=== PATIENT | male | born 1970 | race Two or more races ===

== ENCOUNTER 2016-07-22 08:04 | Day surgery (SDC) | payer OTHER ==
[2016-07-22 08:09] VITALS: BMI 25.2
--- NOTE | 2016-07-22 08:38 | PDOC ---
History of Present Illness - General History Source: Patient Exam Limitations: No Limitations - History of Present Illness Initial Comments: 07/22/16 09:23 The patient is a 46 year old male, with a significant past medical history of HTN, DM, ESRD (on dialysis Wednesday, , Wednesday) , who was sent to the emergency department for a pre-op evaluation for a clotted AV fistula. The patient reports having a full complete dialysis yesterday, but reports it was slow in function. He denies any recent fevers, chills, headache or dizziness. He denies any recent vomit, diarrhea or constipation. Allergies: NKA Past surgical history: None reported. Social History: Nonsmoker. Denies EtOH use and drug use. Primary Care Physician: <Marcelo Duncan - Last Filed: 07/22/16 10:51> <Sanjiv Morales - Last Filed: 07/23/16 08:33> - General Chief Complaint: Dialysis Shunt Problem Stated Complaint: PRE-OP,sent by Dr Reese clotted AV fistula Time Seen by Provider: 07/22/16 08:28 Past History <Marcelo Duncan - Last Filed: 07/22/16 10:51> - Past Medical History Diabetes: Yes (iddm) Dialysis: Yes () HTN: Yes Hypercholesterolemia: Yes - Psycho/Social/Smoking Cessation Hx Anxiety: No Suicidal Ideation: No Smoking History: Never smoked Have you smoked in the past 12 months: No Information on smoking cessation initiated: No Hx Alcohol Use: No Drug/Substance Use Hx: No Substance Use Type: None Hx Substance Use Treatment: No <Sanjiv Morales - Last Filed: 07/23/16 08:33> - Past Medical History Allergies/Adverse Reactions: Allergies Allergy/AdvReac Type Severity Reaction Status Date / Time No Known Allergies Allergy Verified 07/22/16 08:09 Home Medications: Ambulatory Orders Amlodipine Besylate 10 mg PO DAILY 10/09/15 Aspirin [Aspirin EC] 81 mg PO DAILY 10/09/15 Enalapril Maleate [Vasotec] 20 mg PO DAILY 10/09/15 Hydralazine HCl [Apresoline -] 50 mg PO TID 10/09/15 Metoprolol Tartrate 50 mg PO BID 10/09/15 Multivitamin with Iron [Daily Seven with Iron] 1 each PO DAILY 10/09/15 Pravastatin Sodium 20 mg PO DAILY 10/09/15 Insulin Glargine,Hum.rec.anlog [Lantus Solostar PEN (NF)] 0 units SQ ASDIR 03/04 Omeprazole 20 mg PO DAILY 03/04/16 Review of Systems - Review of Systems Able to Perform ROS?: Yes Comments:: 07/22/16 09:24 CONSTITUTIONAL: No reported: Fever, Chills, Diaphoresis, Generalized Weakness, Malaise, Loss of Appetite HEENT: No reported: Rhinorrhea, Nasal Congestion, Throat Pain, Throat Swelling, Difficulty Swallowing, Mouth Swelling, Ear Pain, Eye Pain, Visual Changes CARDIOVASCULAR: No reported: Chest Pain, Syncope, Palpitations, Irregular Heart Rate, Lightheadedness, Peripheral Edema RESPIRATORY: No reported: Cough, Shortness of Breath, SOB with Exertion, Orthopnea, Wheezing , Stridor, Hemoptysis GASTROINTESTINAL: No reported: Abdominal Distension, Nausea, Vomiting, Diarrhea, Constipation, Melena, Hematochezia GENITOURINARY: No reported: Dysuria, Frequency, Urgency, Hesitancy, Flank Pain, Genital Pain MUSCULOSKELETAL: No reported: Myalgia, Arthralgia, Joint Swelling, Back pain, Neck Pain SKIN: No reported: Rash, Itching, Pallor HEMATOLOGIC/IMMUNOLOGIC: +clotted AV fistula. No reported: Easy Bleeding, Easy Bruising, Lymphadenopathy , Frequent infections ENDOCRINE: No reported: Unexplained Weight Gain, Unexplained Weight Loss, Heat Intolerance , Cold Intolerance NEUROLOGIC: No reported: Headache, Focal Weakness, Paresthesias, Vertigo, Lightheadedness, Unsteady Gait, Seizure, Mental Status Changes, Incontinence PSYCHIATRIC: No reported: Anxiety, Depression <Marcelo Duncan - Last Filed: 07/22/16 10:51> *Physical Exam - Vital Signs Last Vital Signs Temp Pulse Resp BP Pulse Ox 98.1 F 92 H 18 128/86 98 07/22/16 08:07 07/22/16 08:07 07/22/16 08:07 07/22/16 08:07 07/22/16 09:16 - Physical Exam Comments: 07/22/16 09:24 GENERAL: The patient is awake, alert, and fully oriented, Nontoxic - in no acute distress. HEAD: Normocephalic, atraumatic. EYES: extraocular movements intact, sclera anicteric, conjunctiva clear. ENT: Normal voice, Moist mucous membranes. NECK: Normal range of motion, supple LUNGS: Breath sounds equal, clear to auscultation bilaterally. No wheezes, no rhonchi, no rales. HEART: Regular rate and rhythm, without murmur, rub or gallop. ABDOMEN: Soft, nontender, normoactive bowel sounds. No guarding, no rebound.No CVA tenderness EXTREMITIES: Left forearm fistula in place with a good thrill. Normal range of motion, no edema. No clubbing or cyanosis. No cords, erythema, or tenderness. NEUROLOGICAL: No facial asymmetry, Normal speech. moving all 4 extremities spontaneously and symmetrically PSYCH: Normal mood, normal affect. SKIN: Warm, Dry, normal turgor. <Marcelo Duncan - Last Filed: 07/22/16 10:51> - Vital Signs Last Vital Signs Temp Pulse Resp BP Pulse Ox 98.1 F 92 H 18 128/86 100 07/22/16 08:07 07/22/16 08:07 07/22/16 08:07 07/22/16 08:07 07/22/16 08:07 <Sanjiv Morales - Last Filed: 07/23/16 08:33> Heart Score/ECG Review - ECG Impressions Comment:: 07/22/16 09:33 Twelve-lead EKG was performed and reviewed by me. There is normal sinus rhythm with a normal rate. rate of 88 The axis is normal. The intervals are normal. There is normal R wave progression There are no ST or T wave abnormalities. no signs of interval widening or peaked T waves Impression: Normal twelve-lead EKG <Sanjiv Morales - Last Filed: 07/23/16 08:33> ED Treatment Course - LABORATORY CBC & Chemistry Diagram: 07/22/16 09:12 07/22/16 09:12 - RADIOLOGY Radiograph Interpretation: 07/22/16 09:20 CHEST X-RAY impressions reported by : Unremarkable examination. <Marcelo Duncan - Last Filed: 07/22/16 10:51> - LABORATORY CBC & Chemistry Diagram: 07/22/16 09:12 07/22/16 09:12 <Sanjiv Morales - Last Filed: 07/23/16 08:33> Medical Decision Making - Medical Decision Making 07/22/16 10:49 Call made to , awaiting call back. 07/22/16 10:51 Call back from , case discussed. <Marcelo Duncan - Last Filed: 07/22/16 10:51> - Medical Decision Making 07/22/16 09:55 46y M hx of ESRD (sp dialysis yesterday) presents with malfunctioning AV shunt and was told by dr. reese to come to ER for revision last meal 10pm. will obtian pre op labs will discuss with dr. reese. likely admit to OR A portion of this note was documented by scribe services under my direction. I have reviewed the details of the note, within reason, and agree with the documentation with the following case summary and management plan written by me 07/22/16 10:47 labs reviewed noted for elevated cr, as expected k slightly elevated at 5.[address] reese 07/22/16 11:[address] reese plan for or around 1pm wlll admit to his service Case discussed in detail with admitting physician including history, physical exam and ancillary studies. Admitting physician has assumed care for the patient, will follow all pending diagnostics and will complete the evaluation and treatment. <Sanjiv Morales - Last Filed: 07/23/16 08:33> *DC/Admit/Observation/Transfer - Attestations Scribe Attestion: 07/22/16 09:24 Documentation prepared by Marcelo Duncan, acting as medical instrument technician for Sanjiv Morales MD. <Marcelo Duncan - Last Filed: 07/22/16 10:51> - Discharge Dispostion Admit: Yes <Sanjiv Morales - Last Filed: 07/23/16 08:33> Diagnosis at time of Disposition: Complication of AV dialysis fistula Qualifiers: Encounter type: initial encounter Qualified Code(s): T82.9XXA - Unspecified complication of cardiac and vascular prosthetic device, implant and graft, initial encounter - Discharge Dispostion Disposition: HOME Condition at time of disposition: Good
[2016-07-22 09:49] LABS: EOSINOPHIL 2.3 % (0-4.5); MCH 32.5 pg (25.7-33.7); MCHC 33.3 g/dl (32.0-35.9); MEAN CELL VOLUME 97.7 fl (80-96); MEAN PLT VOLUME 8.2 fl (7.5-11.1); NEUTROPHILS 65.5 % (42.8-82.8); PLATELET COUNT 228 K/MM3 (134-434); RDW 13.3 % (11.9-15.9); WHITE BLOOD COUNT 7.3 K/mm3 (4.0-10.0)
[2016-07-22 10:16] LABS: ALBUMIN 3.8 g/dl (3.4-5.0); CALCIUM 8.9 mg/dL (8.5-10.1)
[2016-07-22 10:21] LABS: INR 0.91 (0.82-1.09)
[2016-07-22 10:24] LABS: BILIRUBIN,TOTAL 0.4 mg/dL (0.2-1.0); COCKROFT - GAULT 8.78; CREATININE 9.2 mg/dL (0.7-1.3); TOT PROT 8.1 g/dl (6.4-8.2)
[2016-07-22] MEDS ORDERED: HEPARIN NA (PORCINE) 5,000 UNITS/ML 1ML VIAL ONE ×2 (12:35→13:29)
[2016-07-22] MEDS ORDERED: LIDOCAINE HCL 1%, 10 MG/ML (20ML VIAL) ONE (12:35)
[2016-07-22] MEDS ORDERED: MIDAZOLAM HCL 2 MG/2 ML SINGLE DOSE VIAL ONE (13:09)
[2016-07-22] MEDS ORDERED: ceFAZolin SODIUM 1 GM VIAL ONE (13:16)
[2016-07-22] MEDS ORDERED: ceFAZolin SODIUM 1 GM VIAL IVPB ONE (13:22)
--- NOTE | 2016-07-22 14:11 | EKG ---
Test Reason : Blood Pressure : / mmHG Vent. Rate : 088 BPM Atrial Rate : 088 BPM P-R Int : 160 ms QRS Dur : 086 ms QT Int : 354 ms P-R-T Axes : 073 067 072 degrees QTc Int : 428 ms NORMAL SINUS RHYTHM NORMAL ECG WHEN COMPARED WITH ECG OF 04-MAR-2016 07:58, NO SIGNIFICANT CHANGE WAS FOUND Confirmed by CARLOS MANUEL LANIER MD ([id number]) on 07/22/2016 2:11:21 PM Referred By: Confirmed By:CARLOS MANUEL LANIER MD
--- NOTE | 2016-07-22 14:28 | HP ---
Admitting History and Physical - Admission Chief Complaint: low flow left avf - Past Medical History Cardiovascular: Yes: HTN, Hyperlipdemia Renal/: Yes: Renal Failure Musculoskeletal: Yes: Chronic low back pain - Past Surgical History Past Surgical History: Yes: AV Fistula/Graft - Smoking History Smoking history: Never smoked Have you smoked in the past 12 months: No - Alcohol/Substance Use Hx Alcohol Use: No Home Medications - Allergies Allergies/Adverse Reactions: Allergies Allergy/AdvReac Type Severity Reaction Status Date / Time No Known Allergies Allergy Verified 07/22/16 08:09 - Home Medications Home Medications: Ambulatory Orders Amlodipine Besylate 10 mg PO DAILY 10/09/15 Aspirin [Aspirin EC] 81 mg PO DAILY 10/09/15 Enalapril Maleate [Vasotec] 20 mg PO DAILY 10/09/15 Hydralazine HCl [Apresoline -] 50 mg PO TID 10/09/15 Metoprolol Tartrate 50 mg PO BID 10/09/15 Multivitamin with Iron [Daily Seven with Iron] 1 each PO DAILY 10/09/15 Pravastatin Sodium 20 mg PO DAILY 10/09/15 Insulin Glargine,Hum.rec.anlog [Lantus Solostar PEN (NF)] 0 units SQ ASDIR 03/04 Omeprazole 20 mg PO DAILY 03/04/16 Physical Examination Vital Signs: Vital Signs Temperature 98.9 F 07/22/16 13:53 Pulse Rate 80 07/22/16 14:05 Respiratory Rate 15 07/22/16 14:05 Blood Pressure 122/70 07/22/16 14:05 O2 Sat by Pulse Oximetry (%) 98 07/22/16 14:05 Constitutional: Yes: Well Nourished Eyes: Yes: WNL HENT: Yes: WNL Neck: Yes: WNL Cardiovascular: Yes: WNL Respiratory: Yes: WNL Gastrointestinal: Yes: WNL Extremities: Yes: WNL Labs: CBC, BMP 07/22/16 09:12 07/22/16 09:12 Assessment/Plan Low flow left avf 1. for venogram today
--- NOTE | 2016-07-22 14:28 | OP ---
Operative Note - Note: Operative Date: 07/22/16 Pre-Operative Diagnosis: Low flow left avf Operation: venogram,venoplaty left avf Post-Operative Diagnosis: Same as Pre-op Surgeon: Abiodun Flanagan Anesthesia: Fractional Estimated Blood Loss (mls): 10 Operative Report Dictated: Yes
[2016-07-22 14:46] VITALS: TEMP 98.1
[2016-07-22] MEDS ORDERED: ONDANSETRON 4 MG/2 ML VIAL IVPUSH PRN (14:59)
[2016-07-22] MEDS ORDERED: ACETAMINOPHEN 325 MG TABLET (FP) PO PRN (14:59)
[2016-07-22 15:07] VITALS: PULSE 84
[2016-07-22 16:32] VITALS: BP 145/80
== END 2016-07-22 16:20 | disposition home or self-care (01) ==
LOC: JER 08:04 → JASUSAT 10:53
PROVIDERS: ATTEND Surgery Vascular Surgery
PROC: 057Y3ZZ Dilation of Upper Vein, Percutaneous Approach (ICD-10-PCS; principal; 2016-07-22 11:00)
DX: I12.0 Hypertensive chronic kidney disease with stage 5 chronic kidney disease or end stage renal disease (principal); E11.22 Type 2 diabetes mellitus with diabetic chronic kidney disease; N18.6 End stage renal disease; Z99.2 Dependence on renal dialysis
CPT/HCPCS: 36415; 71010-TC; 76000-TC; 80053; 85025; 85610; 86850; 86900; 86901; 93005; 93010; 94760; 99284-25; J1644

== ENCOUNTER 2017-01-22 06:52 | Day surgery (SDC) | payer OTHER ==
[2017-01-22 07:13] VITALS: BMI 24.7
--- NOTE | 2017-01-22 07:45 | PDOC ---
Attending Attestation - Medical Decision Making 01/22/17 07:49 First call placed to Dr. Flanagan's answering service at 07:49. Awaiting call back. Second call placed to Dr. Flanagan at 08:17. Awaiting call back. Documentation prepared by Natasha Trammell, acting as medical technologist for Iqra Siddiqui MD. <Natasha Trammell - Last Filed: 01/22/17 08:16> - Resident Resident Name: Senait Castorenal - ED Attending Attestation I have performed the following: I have examined & evaluated the patient, The case was reviewed & discussed with the resident, I agree w/resident's findings & plan, Exceptions are as noted - HPI HPI: 01/22/17 07:39 46yo M hx ESRD on HD, DM, HTN sent in by Dr. Flanagan for admission for fistula procedure. Pt reports his fistula has not been working well and that the machine kept beeping yesterday during HD. He reports that he had a full session of HD yesterday. Denies other symptoms of fevers, chills, cp, sob, abd pain, rashes, LE edema, dysuria, frequency, weakness/numbness, headache. - Physicial Exam PE: 01/22/17 07:53 GENERAL: Awake, alert, and fully oriented, in no acute distress HEAD: No signs of trauma EYES: PERRLA, EOMI, sclera anicteric, conjunctiva clear ENT: Auricles normal inspection, hearing grossly normal, nares patent, oropharynx clear without exudates. Moist mucosa NECK: Normal ROM, supple, no lymphadenopathy, JVD, or masses LUNGS: Breath sounds equal, clear to auscultation bilaterally. No wheezes, and no crackles HEART: Regular rate and rhythm, normal S1 and S2, no murmurs, rubs or gallops ABDOMEN: Soft, nontender, normoactive bowel sounds. No guarding, no rebound. No masses EXTREMITIES: Normal range of motion, no edema. No clubbing or cyanosis. No cords, erythema, or tenderness. L forearm fistual with palpable thrill. NEUROLOGICAL: Normal speech, cranial nerves intact, negative pronator drift, 5/ 5 strength in all 4 extremities, normal sensation to light touch in all 4 extremities, normal cerebellar exam, normal gait, normal reflexes and tone SKIN: Warm, Dry, normal turgor, no rashes or lesions noted. - Medical Decision Making 01/22/17 08:11 46yo M hx ESRD on HD p/w malfunctioning fistula per Dr. Flanagan. Vitals unremarkable. Palpable thrill on exam. Plan: -labs -ECG -CXR -call Dr. Flanagan 01/22/17 08:41 OR calling for the patient but we have not yet heard from Dr. Flanagan about the plan re admission vs satellite 01/22/17 08:52 Dr Flanagan requests satellite admission for the patient. Pt will be going up to OR shortly. <Iqra Siddiqui - Last Filed: 01/22/17 08:53> Discharge Disposition - Discharge Dispostion Last Admission D/C Date: 03/04/16 Admit: Yes - Transfer to Acute Care Facility Transfer comment: 01/22/17 08:52 I, Dr. Iqra Siddiqui MD, attest that this document has been prepared under my direction and personally reviewed by me in its entirety. I further attest, that it accurately reflects all work, treatment, procedures and medical decision -making performed by me. <Iqra Siddiqui - Last Filed: 01/22/17 08:53> - Diagnosis Complication of AV dialysis fistula - Discharge Dispostion Condition at time of disposition: Stable Heart Score/ECG Review #1 01/22/17 08:41 Twelve-lead EKG was performed and reviewed by me. Normal sinus rhythm, rate 94, normal axis and intervals. No ST elevations or T-wave inversions. Some T-wave peaking in V2 through V4 however unchanged compared to EKG from 07/22/2016 <Iqra Siddiqui - Last Filed: 01/22/17 08:53>
--- NOTE | 2017-01-22 07:47 | PDOC ---
History of Present Illness - General Chief Complaint: Dialysis Shunt Problem Stated Complaint: admission pre op PCP: SENT Time Seen by Provider: 01/22/17 07:33 History Source: Patient Exam Limitations: No Limitations - History of Present Illness Initial Comments: 01/22/17 07:44 46 y.o. M with pmh of HTN, DM, and ESRD on dialysis sent to the ED by Dr. Flanagan for fistula surgery. Patient states he saw Dr. Flanagan on Wednesday and has been having issues at dialysis with his fistula. He underwent an ultrasound on Wednesday. Patient has no other complaints today. Patient denies fever, chills, n/v/d/c/, chest pain, sob, abd pain, dysuria, hematuria. All-NKDA SH-denies PCP- Dr. Chriss Parikh Past History - Past Medical History Allergies/Adverse Reactions: Allergies Allergy/AdvReac Type Severity Reaction Status Date / Time No Known Allergies Allergy Verified 01/22/17 07:07 Home Medications: Ambulatory Orders Amlodipine Besylate [Norvasc -] 10 mg PO DAILY 01/22/17 Aspirin Coated [Ecotrin -] 81 mg PO DAILY 01/22/17 Enalapril Maleate [Vasotec -] 10 mg PO DAILY 01/22/17 Hydralazine HCl [Apresoline -] 25 mg PO TID 01/22/17 Insulin Glargine,Hum.rec.anlog [Lantus Solostar PEN (NF)] 0 units SQ BID Metoprolol Tartrate [Lopressor -] 50 mg PO BID 01/22/17 Multivitamin with Iron [Daily Seven with Iron] 1 each PO DAILY 01/22/17 Omeprazole 20 mg PO DAILY 01/22/17 Pravastatin Sodium [Pravachol (Nf)] 20 mg PO DAILY 01/22/17 Diabetes: Yes (iddm) Dialysis: Yes (hd tues,thr,sat , lt arm fistula) HTN: Yes Hypercholesterolemia: Yes - Suicide/Smoking/Psychosocial Hx Smoking History: Never smoked Have you smoked in the past 12 months: No Information on smoking cessation initiated: No Hx Alcohol Use: No Drug/Substance Use Hx: No Substance Use Type: None Hx Substance Use Treatment: No Review of Systems - Review of Systems Comments:: 01/22/17 07:47 GENERAL/CONSTITUTIONAL: No fever or chills. No weakness. HEAD, EYES, EARS, NOSE AND THROAT: No change in vision. No ear pain or discharge. No sore throat. CARDIOVASCULAR: No chest pain or shortness of breath RESPIRATORY: No cough, wheezing, or hemoptysis. GASTROINTESTINAL: No nausea, vomiting, diarrhea or constipation. GENITOURINARY: No dysuria, frequency, or change in urination. MUSCULOSKELETAL: No joint or muscle swelling or pain. No neck or back pain. SKIN: No rash NEUROLOGIC: No headache, vertigo, loss of consciousness, or change in strength/ sensation. ENDOCRINE: No increased thirst. No abnormal weight change HEMATOLOGIC/LYMPHATIC: No anemia, easy bleeding, or history of blood clots. ALLERGIC/IMMUNOLOGIC: No hives or skin allergy. *Physical Exam - Vital Signs Last Vital Signs Temp Pulse Resp BP Pulse Ox 98.0 F 92 H 18 147/85 100 01/22/17 07:09 01/22/17 07:09 01/22/17 07:09 01/22/17 07:09 01/22/17 07:09 - Physical Exam Comments: 01/22/17 07:47 GENERAL: Awake, alert, and fully oriented, in no acute distress HEAD: No signs of trauma, normocephalic, atraumatic EYES: PERRLA, EOMI, sclera anicteric, conjunctiva clear ENT: Auricles normal inspection, hearing grossly normal, nares patent, oropharynx clear without exudates. Moist mucosa NECK: Normal ROM, supple, no lymphadenopathy, JVD, or masses LUNGS: No distress, speaks full sentences, clear to auscultation bilaterally HEART: Regular rate and rhythm, normal S1 and S2, no murmurs, rubs or gallops, peripheral pulses normal and equal bilaterally. ABDOMEN: Soft, nontender, normoactive bowel sounds. No guarding, no rebound. No masses EXTREMITIES: Normal inspection, Normal range of motion, no edema. No clubbing or cyanosis. Left arm fistula in place with palpable thrill. NEUROLOGICAL: Cranial nerves II through XII grossly intact. Normal speech, normal gait, no focal sensorimotor deficits SKIN: Warm, Dry, normal turgor, no rashes or lesions noted. ED Treatment Course - LABORATORY CBC & Chemistry Diagram: 01/22/17 08:12 01/22/17 08:12 - RADIOLOGY Radiology Studies Ordered: Category Date Time Status CHEST PA & LAT [RAD] Stat Radiology 01/22/17 07:42 Ordered Medical Decision Making - Medical Decision Making 01/22/17 07:57 46 y.o. M with pmh of HTN, DM, and ESRD on dialysis sent to the ED by Dr. Flanagan for fistula surgery. Plan: CBC, CMP, Coags, T&S, CXR, EKG 01/22/17 08:33 EKG- NSR, HR-94, QTc-417, Peaked T waves in V2-V4-- unchanged from prior EKG 01/22/17 09:02 Patient to OR per Dr. Flanagan. *DC/Admit/Observation/Transfer Diagnosis at time of Disposition: Complication of AV dialysis fistula - Discharge Dispostion Condition at time of disposition: Stable
[2017-01-22 08:28] LABS: BASOPHIL 1.2 % (0-2.0); EOSINOPHIL 2.1 % (0-4.5); MCH 33.2 pg (25.7-33.7); MCHC 33.5 g/dl (32.0-35.9); MEAN CELL VOLUME 99.1 fl (80-96); MEAN PLT VOLUME 6.9 fl (7.5-11.1); NEUTROPHILS 72.3 % (42.8-82.8); PLATELET COUNT 242 K/MM3 (134-434); RDW 14.1 % (11.9-15.9); WHITE BLOOD COUNT 7.4 K/mm3 (4.0-10.0)
[2017-01-22 08:55] LABS: ALBUMIN 3.5 g/dl (3.4-5.0); ANION GAP 9 (8-16); BILIRUBIN,TOTAL 0.4 mg/dL (0.2-1.0); CALCIUM 8.8 mg/dL (8.5-10.1); CO2 27 mmol/L (21-32); GLUCOSE,RANDOM 196 mg/dL (74-106); SGOT/AST 24 U/L (15-37); SGPT/ALT 48 U/L (12-78); TOT PROT 7.4 g/dl (6.4-8.2)
[2017-01-22 08:57] LABS: INR 0.89 (0.82-1.09); PROTHROMBIN TIME (PATIENT) 10.1 SEC (9.98-11.88)
[2017-01-22 09:00] LABS: ALK PHOS 247 U/L (45-117)
--- NOTE | 2017-01-22 09:03 | EKG ---
Test Reason : Blood Pressure : / mmHG Vent. Rate : 094 BPM Atrial Rate : 094 BPM P-R Int : 160 ms QRS Dur : 084 ms QT Int : 334 ms P-R-T Axes : 076 070 068 degrees QTc Int : 417 ms NORMAL SINUS RHYTHM NORMAL ECG WHEN COMPARED WITH ECG OF 22-JUL-2016 08:40, NO SIGNIFICANT CHANGE WAS FOUND Confirmed by AUBREE CORDOVA MD ([id number]) on 01/22/2017 9:02:50 AM Referred By: Confirmed By:AUBREE CORDOVA MD
[2017-01-22] MEDS ORDERED: MIDAZOLAM HCL 2 MG/2 ML SINGLE DOSE VIAL ONE (09:13)
[2017-01-22 09:14] LABS: CREATININE 8.7 mg/dL (0.7-1.3)
[2017-01-22] MEDS ORDERED: ceFAZolin SODIUM 1 GM VIAL ONE (09:28)
[2017-01-22] MEDS ORDERED: LIDOCAINE HCL 1%, 10 MG/ML (20ML VIAL) PNB ONE (09:38)
--- NOTE | 2017-01-22 09:50 | OP ---
Operative Note - Note: Operative Date: 01/22/17 Pre-Operative Diagnosis: stenosis left avf Operation: venogram, venoplasty left avf Post-Operative Diagnosis: Same as Pre-op Surgeon: Abiodun Flanagan Anesthesia: Fractional Estimated Blood Loss (mls): 10 Operative Report Dictated: Yes
[2017-01-22 10:57] VITALS: TEMP 97.8
[2017-01-22 12:35] VITALS: BP 150/80; PULSE 84
== END 2017-01-22 12:52 | disposition home or self-care (01) ==
LOC: JER 06:52 → JASUSAT 08:53 → JER 09:00 → JASUSAT 12:52
PROVIDERS: ATTEND Surgery Vascular Surgery
PROC: B51WYZZ Fluoroscopy of Dialysis Shunt/Fistula using Other Contrast (ICD-10-PCS; 2017-01-22)
PROC: 057Y3ZZ Dilation of Upper Vein, Percutaneous Approach (ICD-10-PCS; principal; 2017-01-22 09:00)
DX: T82.858A Stenosis of other vascular prosthetic devices, implants and grafts, initial encounter (principal); I12.0 Hypertensive chronic kidney disease with stage 5 chronic kidney disease or end stage renal disease; E11.22 Type 2 diabetes mellitus with diabetic chronic kidney disease; N18.6 End stage renal disease; Z99.2 Dependence on renal dialysis
CPT/HCPCS: 36415; 71020-TC; 76000-TC; 80053; 85025; 85610; 85730; 86850; 86900; 86901; 93005; 93010; 94760; 99285-25; J1644

== ENCOUNTER 2017-04-21 08:14 | Day surgery (SDC) | payer OTHER ==
[2017-04-21 08:18] VITALS: BMI 24.3
--- NOTE | 2017-04-21 11:10 | PDOC ---
History of Present Illness - History of Present Illness Initial Comments: 04/21/17 11:11 47 M with h/o ESRD on HD (), DM, HTN, presenting to ER for possible AVF malfunction. Pt states that he had an ultrasound done 2 weeks ago to evaluate his AVF. He received a call from Dr. Flanagan, his vascular surgeon, that he would require surgery and would need to come to the ER today. Pt denies any symptoms at this time. Had a full HD session yesterday without issue. <Jaiden Orlando - Last Filed: 04/21/17 12:11> <Natasha Trammell - Last Filed: 04/21/17 12:15> - General Chief Complaint: Dialysis Shunt Problem Stated Complaint: EVALUATION (PCP) Time Seen by Provider: 04/21/17 09:20 Past History - Past Medical History COPD: No Diabetes: Yes (iddm) Dialysis: Yes () HTN: Yes Hypercholesterolemia: Yes Seizures: No - Suicide/Smoking/Psychosocial Hx Smoking History: Current every day smoker Have you smoked in the past 12 months: No Information on smoking cessation initiated: No Hx Alcohol Use: No Drug/Substance Use Hx: No Substance Use Type: None Hx Substance Use Treatment: No <Jaiden Orlando - Last Filed: 04/21/17 12:11> <Natasha Trammell - Last Filed: 04/21/17 12:15> - Past Medical History Allergies/Adverse Reactions: Allergies Allergy/AdvReac Type Severity Reaction Status Date / Time No Known Allergies Allergy Verified 04/21/17 08:18 Home Medications: Ambulatory Orders Amlodipine Besylate [Norvasc -] 10 mg PO DAILY 01/22/17 Aspirin Coated [Ecotrin -] 81 mg PO DAILY 01/22/17 Enalapril Maleate [Vasotec -] 10 mg PO DAILY 01/22/17 Hydralazine HCl [Apresoline -] 25 mg PO TID 01/22/17 Insulin Glargine,Hum.rec.anlog [Lantus Solostar PEN (NF)] 0 units SQ BID Metoprolol Tartrate [Lopressor -] 50 mg PO BID 01/22/17 Multivitamin with Iron [Daily Seven with Iron] 1 each PO DAILY 01/22/17 Omeprazole 20 mg PO DAILY 01/22/17 Pravastatin Sodium [Pravachol (Nf)] 20 mg PO DAILY 01/22/17 Review of Systems - Review of Systems Comments:: 04/21/17 11:13 "GENERAL/CONSTITUTIONAL: No fever or chills. No weakness. HEAD, EYES, EARS, NOSE AND THROAT: No change in vision. No ear pain or discharge. No sore throat. CARDIOVASCULAR: No chest pain or shortness of breath. RESPIRATORY: No cough, wheezing, or hemoptysis. GASTROINTESTINAL: No nausea, vomiting, diarrhea or constipation. GENITOURINARY: No dysuria, frequency, or change in urination. MUSCULOSKELETAL: No joint or muscle swelling or pain. No neck or back pain. SKIN: No rash NEUROLOGIC: No headache, vertigo, loss of consciousness, or change in strength/ sensation. ENDOCRINE: No increased thirst. No abnormal weight change. HEMATOLOGIC/LYMPHATIC: No anemia, easy bleeding, or history of blood clots. ALLERGIC/IMMUNOLOGIC: No hives or skin allergy. " <Jaiden Orlando - Last Filed: 04/21/17 12:11> *Physical Exam - Vital Signs Last Vital Signs Temp Pulse Resp BP Pulse Ox 97.5 F L 85 20 140/89 100 04/21/17 08:15 04/21/17 08:15 04/21/17 08:15 04/21/17 08:15 04/21/17 08:15 - Physical Exam Comments: 04/21/17 11:13 "GENERAL: Awake, alert, and fully oriented, in no acute distress HEAD: No signs of trauma EYES: PERRLA, EOMI, sclera anicteric, conjunctiva clear ENT: Auricles normal inspection, hearing grossly normal, nares patent, oropharynx clear without exudates. Moist mucosa NECK: Nontender, no stepoffs, Normal ROM, supple, no lymphadenopathy, JVD, or masses LUNGS: Breath sounds equal, clear to auscultation bilaterally. No wheezes, and no crackles HEART: Regular rate and rhythm, normal S1 and S2, no murmurs, rubs or gallops ABDOMEN: Soft, nontender, normoactive bowel sounds. No guarding, no rebound. No masses EXTREMITIES: + L forearm AVF, compressible, with palpable thrill NEUROLOGICAL: Cranial nerves II through XII intact. 5/5 strength and sensation in all extremities, Normal speech, normal gait SKIN: Warm, Dry, normal turgor, no rashes or lesions noted. " <Jaiden Orlando - Last Filed: 04/21/17 12:11> - Vital Signs Last Vital Signs Temp Pulse Resp BP Pulse Ox 97.5 F L 85 20 140/89 100 04/21/17 08:15 04/21/17 08:15 04/21/17 08:15 04/21/17 08:15 04/21/17 08:15 <Natasha Trammell - Last Filed: 04/21/17 12:15> ED Treatment Course - LABORATORY CBC & Chemistry Diagram: 04/21/17 11:10 04/21/17 11:10 <Jaiden Orlando - Last Filed: 04/21/17 12:11> - LABORATORY CBC & Chemistry Diagram: 04/21/17 11:10 04/21/17 11:10 - ADDITIONAL ORDERS Additional order review: Laboratory Results 04/21/17 11:10 Sodium 134 L Potassium 4.5 Chloride 100 Carbon Dioxide 23 Anion Gap 11 BUN 38 H Creatinine 9.4 H* Creat Clearance w eGFR 6.01 Random Glucose 172 H Calcium 9.0 Total Bilirubin 0.4 AST 17 D ALT 40 Alkaline Phosphatase 211 H Total Protein 8.1 Albumin 3.9 04/21/17 11:10 RBC 4.03 D MCV 96.2 H MCHC 32.7 RDW 13.5 MPV 8.1 D Neutrophils % 71.8 Lymphocytes % 19.1 Monocytes % 6.6 Eosinophils % 1.6 Basophils % 0.9 <Natasha Trammell - Last Filed: 04/21/17 12:15> Medical Decision Making - Medical Decision Making 04/21/17 11:13 47 M with possible AVF malfunction. Review of US from 04/07 shows >50% stenosis of distal forearm outflow cephalic vein, 50-74% stenosis of proximal radial artery. - Pre-op labs - Consult Dr. Flanagan 04/21/17 12:[address] Flanagan, who would like to take pt to OR today as add-on. Pt NPO since last night at 11PM. Pre-op labs sent. Will admit to Dr. Flanagan as satellite. <Jaiden Orlando - Last Filed: 04/21/17 12:11> - Medical Decision Making 04/21/17 11:45 First call placed to Dr. Flanagan at 11:10. Awaiting call back. Case discussed with Dr. Flanagan at 12:11. <Natasha Trammell - Last Filed: 04/21/17 12:15> *DC/Admit/Observation/Transfer - Discharge Dispostion Admit: Yes - Attestations Physician Attestion: 04/21/17 12:12 I, Dr. Jaiden Orlando MD, attest that this document has been prepared under my direction and personally reviewed by me in its entirety. I further attest, that it accurately reflects all work, treatment, procedures and medical decision -making performed by me. <Jaiden Orlando - Last Filed: 04/21/17 12:11> - Attestations Scribe Attestion: 04/21/17 12:11 Documentation prepared by Natasha Trammell, acting as medical affairs director for Jaiden Orlando MD. <Natasha Trammell - Last Filed: 04/21/17 12:15> Diagnosis at time of Disposition: AV shunt malfunction
[2017-04-21 11:34] LABS: BASO % 0.9 % (0-2.0); EOS % 1.6 % (0-4.5); HEMATOCRIT 38.7 % (35.4-49); HEMOGLOBIN 12.6 GM/dL (11.7-16.9); LYMPH % 19.1 % (8-40); MCH 31.4 pg (25.7-33.7); MCHC 32.7 g/dl (32.0-35.9); MEAN CELL VOLUME 96.2 fl (80-96); MEAN PLT VOLUME 8.1 fl (7.5-11.1); MONO % 6.6 % (3.8-10.2); NEUT % 71.8 % (42.8-82.8); PLATELET COUNT 225 K/MM3 (134-434); RBC 4.03 M/mm3 (4.00-5.60); RDW 13.5 % (11.9-15.9); WHITE BLOOD COUNT 8.6 K/mm3 (4.0-10.0)
[2017-04-21 11:56] LABS: ALBUMIN 3.9 g/dl (3.4-5.0); ANION GAP 11 (8-16); BILIRUBIN,TOTAL 0.4 mg/dL (0.2-1.0); BLOOD UREA NITROGEN 38 mg/dL (7-18); CHLORIDE 100 mmol/L (98-107); CO2 23 mmol/L (21-32); GLUCOSE,RANDOM 172 mg/dL (74-106); POTASSIUM 4.5 mmol/L (3.5-5.1); SGOT/AST 17 U/L (15-37); SGPT/ALT 40 U/L (12-78); SODIUM 134 mmol/L (136-145); TOT PROT 8.1 g/dl (6.4-8.2)
[2017-04-21 12:02] LABS: ALK PHOS 211 U/L (45-117)
[2017-04-21 12:07] LABS: CREATININE 9.4 mg/dL (0.7-1.3)
[2017-04-21 12:47] LABS: INR 0.95 (0.82-1.09); PROTHROMBIN TIME (PATIENT) 10.7 SEC (9.98-11.88)
[2017-04-21 13:30] VITALS: TEMP 98
[2017-04-21] MEDS ORDERED: HEPARIN NA (PORCINE) 5,000 UNITS/ML 1ML VIAL ONE (14:42)
--- NOTE | 2017-04-21 15:07 | EKG ---
Test Reason : Blood Pressure : / mmHG Vent. Rate : 082 BPM Atrial Rate : 082 BPM P-R Int : 162 ms QRS Dur : 086 ms QT Int : 378 ms P-R-T Axes : 070 063 089 degrees QTc Int : 441 ms NORMAL SINUS RHYTHM NORMAL ECG WHEN COMPARED WITH ECG OF 22-JAN-2017 08:16, NO SIGNIFICANT CHANGE WAS FOUND Confirmed by CARLOS MANUEL LANIER MD ([id number]) on 04/21/2017 3:06:58 PM Referred By: Confirmed By:CARLOS MANUEL LANIER MD
[2017-04-21] MEDS ORDERED: MIDAZOLAM HCL 2 MG/2 ML SINGLE DOSE VIAL ONE ×3 (15:20)
[2017-04-21] MEDS ORDERED: PROPOFOL 20 ML ONE ×2 (15:21)
[2017-04-21] MEDS ORDERED: SODIUM CHLORIDE 0.9% P/F 10 ML VIAL IJ ONE (15:23)
[2017-04-21] MEDS ORDERED: LABETALOL HCL 5 MG/1 ML (100MG/20 ML VIAL) ONE (15:25)
[2017-04-21] MEDS ORDERED: LIDOCAINE HCL 1%, 10 MG/ML (20ML VIAL) PNB ONE (15:47)
--- NOTE | 2017-04-21 15:57 | OP ---
Operative Note - Note: Operative Date: 04/21/17 Pre-Operative Diagnosis: Stenosis left avf Operation: venogram, venoplasty left avf Post-Operative Diagnosis: Same as Pre-op Surgeon: Abiodun Flanagan Anesthesia: Fractional Estimated Blood Loss (mls): 5 Operative Report Dictated: Yes
--- NOTE | 2017-04-21 15:59 | HP ---
Admitting History and Physical - Admission Chief Complaint: stenosis left avf - Past Medical History Cardiovascular: Yes: HTN, Hyperlipdemia Renal/: Yes: Renal Failure Musculoskeletal: Yes: Chronic low back pain - Past Surgical History Past Surgical History: Yes: AV Fistula/Graft - Smoking History Smoking history: Never smoked Have you smoked in the past 12 months: No - Alcohol/Substance Use Hx Alcohol Use: No Home Medications - Allergies Allergies/Adverse Reactions: Allergies Allergy/AdvReac Type Severity Reaction Status Date / Time No Known Allergies Allergy Verified 04/21/17 08:18 - Home Medications Home Medications: Ambulatory Orders Amlodipine Besylate [Norvasc -] 10 mg PO DAILY 01/22/17 Aspirin Coated [Ecotrin -] 81 mg PO DAILY 01/22/17 Enalapril Maleate [Vasotec -] 10 mg PO DAILY 01/22/17 Hydralazine HCl [Apresoline -] 25 mg PO TID 01/22/17 Insulin Glargine,Hum.rec.anlog [Lantus Solostar PEN (NF)] 0 units SQ BID Metoprolol Tartrate [Lopressor -] 50 mg PO BID 01/22/17 Multivitamin with Iron [Daily Seven with Iron] 1 each PO DAILY 01/22/17 Omeprazole 20 mg PO DAILY 01/22/17 Pravastatin Sodium [Pravachol (Nf)] 20 mg PO DAILY 01/22/17 Review of Systems - Review of Systems Constitutional: reports: No Symptoms Eyes: reports: No Symptoms HENT: reports: No Symptoms Neck: reports: No Symptoms Cardiovascular: reports: No Symptoms Respiratory: reports: No Symptoms Gastrointestinal: reports: No Symptoms Genitourinary: reports: No Symptoms Breasts: reports: No Symptoms Reported Musculoskeletal: reports: No Symptoms Integumentary: reports: No Symptoms Neurological: reports: No Symptoms Endocrine: reports: No Symptoms Hematology/Lymphatic: reports: No Symptoms Psychiatric: reports: No Symptoms Physical Examination Vital Signs: Vital Signs Temperature 98 F 04/21/17 13:29 Pulse Rate 68 04/21/17 13:29 Respiratory Rate 18 04/21/17 13:29 Blood Pressure 130/75 04/21/17 13:29 O2 Sat by Pulse Oximetry (%) 100 04/21/17 13:29 Constitutional: Yes: Well Nourished, No Distress, Calm Eyes: Yes: WNL, Conjunctiva Clear, EOM Intact HENT: Yes: WNL, Atraumatic, Normocephalic Neck: Yes: WNL, Supple, Trachea Midline Cardiovascular: Yes: WNL, Regular Rate and Rhythm Respiratory: Yes: WNL, Regular, CTA Bilaterally Gastrointestinal: Yes: WNL, Normal Bowel Sounds Musculoskeletal: Yes: WNL Extremities: Yes: WNL Edema: No Integumentary: Yes: WNL Neurological: Yes: WNL, Alert, Oriented ...Motor Strength: WNL Psychiatric: Yes: WNL Labs: CBC, BMP 04/21/17 11:10 04/21/17 11:10 Problem List - Problems (1) AV shunt malfunction Code(s): T82.591A - [facility] COMPL OF SURGICALLY CREATED ARTERIOVENOUS SHUNT, INIT Assessment/Plan stenosis left avf 1. for venogram, venoplasty left avf
[2017-04-21] MEDS ORDERED: ACETAMINOPHEN 325 MG TABLET (FP) PO ONE (17:05)
[2017-04-21] MEDS ORDERED: ACETAMINOPHEN 325 MG TABLET (FP) ONE (17:07)
[2017-04-21 18:13] VITALS: BP 120/74; PULSE 78
--- NOTE | 2017-04-22 08:47 | OP ---
DATE OF OPERATION: 04/21/2017 PREOPERATIVE DIAGNOSIS: Stenosis, left arteriovenous fistula. POSTOPERATIVE DIAGNOSIS: Stenosis, left arteriovenous fistula. PROCEDURE: Venogram, venoplasty, left arteriovenous fistula. SURGEON: Abiodun Bay DO ANESTHESIA: Fractional. BLOOD LOSS: 10 mL INDICATION FOR PROCEDURE: The patient is a 47-year-old male who has a left AV fistula. He recently had an ultrasound performed in our office, showing that his volume in his forearm was 200 and needs a diagnostic venogram. Patient came in through the ER into Ambulatory Surgery. Patient was consented for the procedure, understanding all risks, benefits, and alternatives, was then taken to the operating room. DESCRIPTION OF PROCEDURE: Once in the operating room, was laid on the operating table in supine manner, and the area of the left arm was prepped and draped in a sterile surgical manner. We then went ahead and under ultrasound guidance, visualized the distal AV fistula at the antecubital fossa and went ahead and lidocaine 1% over the fistula. We then took our micropuncture needle and punctured the AV fistula. A micropuncture wire was inserted. Micropuncture sheath was inserted, and a traditional 6-English sheath was inserted. We then shot our venogram via hand injection, showing that the fistula was patent but near the anastomosis, it was quite stenotic of about 70% to 80%. At this point, we placed a 0.035 floppy guidewire into the AV fistula, across the anastomosis. We then administered 3000 units of IV heparin. We then used an 8 x 8 balloon and performed venoplasty of the entire AV fistula. Completion venogram showed that the fistula was patent now. There was a good strong thrill. At this point, we used a 4-0 Biosyn stitch and a figure-of-8 stitch was placed around the sheath and the sheath was pulled. Area was wet and dried, and Dermabond was placed. The patient tolerated the procedure with no complication. The patient transferred to PACU in stable condition. ABIODUN BAY DO MACHINE SET UP TECHNICIAN/[id number]
== END 2017-04-21 17:30 | disposition home or self-care (01) ==
LOC: JER 08:14 → JASUSAT 12:11
PROVIDERS: ATTEND Surgery Vascular Surgery
PROC: 057Y3ZZ Dilation of Upper Vein, Percutaneous Approach (ICD-10-PCS; principal; 2017-04-21 13:30)
DX: T82.858A Stenosis of other vascular prosthetic devices, implants and grafts, initial encounter (principal); I12.0 Hypertensive chronic kidney disease with stage 5 chronic kidney disease or end stage renal disease; E11.22 Type 2 diabetes mellitus with diabetic chronic kidney disease; N18.6 End stage renal disease; Z99.2 Dependence on renal dialysis; Z79.4 Long term (current) use of insulin; Z72.0 Tobacco use
CPT/HCPCS: 36415; 76000-TC; 80053; 85025; 85610; 85730; 86850; 86900; 86901; 93005; 93010; 99283-25; J1644